=== PATIENT | male | born 1950 | race Caucasian/White ===

== ENCOUNTER 2018-01-14 19:06 | Emergency (ER) | payer MEDICARE, OTHER ==
[2018-01-14] MEDS ORDERED: Labetalol 100 MG/20 ML MDV IVPUSH ONE ×2 (19:39→21:20)
[2018-01-14] MEDS ORDERED: Sodium Chloride 0.9% 10 ML Syringe FLUSH PRN (19:39)
[2018-01-14] MEDS ORDERED: amLODIPine 5 MG Tab PO ONE (20:42)
--- NOTE | 2018-01-14 20:44 | EDM.PDOC ---
ED HPI GENERAL MEDICAL PROBLEM - General Chief Complaint: Eye Problems Stated Complaint: VISION ISSUES Time Seen by Provider: 01/14/18 19:21 Source of Information: Reports: Patient, RN Notes Reviewed - History of Present Illness INITIAL COMMENTS - FREE TEXT/NARRATIVE: 67-year-old male comes in after episode of some visual symptoms of his right eye about 45 minutes prior to arrival. He did not side doing some light duty chores when he started noticing "some dark spots of his right eye. This lasted for about 2 or 3 minutes. He felt like his vision was a bit "fuzzy or unclear". This seemed to be involved with just the right eye. He had no eye discomfort at the time, no headache nausea or vomiting. Those symptoms then did resolve after about 2 or 3 minutes. However on arrival to ED blood pressure was very high initial reading 205/93. He continues to have no headache. He has not been ill recently. He is on medication for hypertension and also on a statin. He has had no numbness or weakness of upper or lower extremities. No balance difficulty. No speech difficulty. - Related Data Allergies Allergy/AdvReac Type Severity Reaction Status Date / Time No Known Allergies Allergy Verified 01/14/18 19:15 Home Meds: Home Meds Simvastatin [Zocor] 20 mg PO DAILY 06/28/16 [History] amLODIPine Besylate [Amlodipine Besylate] 10 mg PO DAILY 06/28/16 [History] Past Medical History HEENT History: Reports: None Cardiovascular History: Reports: High Cholesterol, Hypertension Respiratory History: Reports: None Gastrointestinal History: Reports: None Genitourinary History: Reports: None Neurological History: Reports: None Psychiatric History: Reports: None Endocrine/Metabolic History: Reports: None Oncologic (Cancer) History: Reports: None Dermatologic History: Reports: None - Infectious Disease History Infectious Disease History: Reports: None - Past Surgical History HEENT Surgical History: Reports: Tonsillectomy GI Surgical History: Reports: Hernia, Abdominal Musculoskeletal Surgical History: Reports: ORIF, Other (See Below) Social & Family History - Family History Family Medical History: Noncontributory - Tobacco Use Smoking Status *Q: Never Smoker - Recreational Drug Use Recreational Drug Use: No - Living Situation & Occupation Living situation: Reports: , with Spouse Occupation: Employed ED ROS GENERAL - Review of Systems Review Of Systems: See Below Constitutional: Denies: Fever, Chills, Diaphoresis HEENT: Denies: Sinus Problem Respiratory: Denies: Shortness of Breath Cardiovascular: Denies: Chest Pain GI/Abdominal: Denies: Abdominal Pain, Nausea, Vomiting Musculoskeletal: Denies: Neck Pain, Shoulder Pain, Arm Pain Skin: Reports: No Symptoms Neurological: Reports: Dizziness (Mild, gone). Denies: Headache, Trouble Speaking, Difficulty Walking, Weakness ED EXAM GENERAL W FULL EYE - Physical Exam Exam: See Below General Appearance: Alert, No Apparent Distress Eye Exam: Bilateral Eye: PERRL Visual Acuity (R) 20/: 20 Eyelids: Bilateral: Normal Appearance Conjunctiva & Sclera: Bilateral: Normal Appearance Cornea Exam: Bilateral: Normal Appearance Extraocular Movements: Bilateral: Intact Pupillary Reaction: Bilateral: Brisk Anterior Chamber: Bilateral: Normal Appearance Nose: Normal Inspection Throat/Mouth: Normal Inspection, Normal Oropharynx Head: Atraumatic. No: Facial Swelling Neck: Supple, Full Range of Motion Respiratory/Chest: No Respiratory Distress, Lungs Clear, Normal Breath Sounds Cardiovascular: Regular Rate, Rhythm GI/Abdominal: Soft, Non-Tender Back Exam: No: CVA Tenderness (L), CVA Tenderness (R) Extremities: Normal Inspection, Normal Range of Motion Neurological: Alert, Oriented, No Motor/Sensory Deficits, Other (Finger to nose testing normal) Skin Exam: Warm, Dry, Normal Color Course - Vital Signs Last Recorded V/S: Last Vital Signs Temp 97.8 F 01/14/18 19:16 Pulse 63 01/14/18 21:23 Resp BP 177/94 H 01/14/18 21:23 Pulse Ox 99 01/14/18 19:16 - Orders/Labs/Meds Orders: Active Orders 24 hr Category Date Time Status Peripheral IV Care [RC] . DIRECTED Care 01/14/18 19:39 Active Peripheral IV Insertion Adult [OM.PC] Stat Oth 01/14/18 19:38 Ordered Labs: Laboratory Tests 01/14/18 01/14/18 Range/Units 19:49 19:49 WBC 8.08 (4.23-9.07) K/mm3 RBC 4.91 (4.63-6.08) M/mm3 Hgb 14.7 (13.7-17.5) gm/L Hct 42.7 (40.1-51.0) % MCV 87.0 (79.0-92.2) fl MCH 29.9 (25.7-32.2) pg MCHC 34.4 (32.2-35.5) g/dl RDW Std Deviation 40.6 (35.1-43.9) fL Plt Count 229 (163-337) K/mm3 MPV 10.8 (9.4-12.3) fl Neut % (Auto) 64.0 (34.0-67.9) % Lymph % (Auto) 22.0 (21.8-53.1) % [place] % (Auto) 9.8 (5.3-12.2) % Eos % (Auto) 3.6 (0.8-7.0) Baso % (Auto) 0.2 (0.1-1.2) % Neut # (Auto) 5.17 (1.78-5.38) K/mm3 Lymph # (Auto) 1.78 (1.32-3.57) K/mm3 [place] # (Auto) 0.79 (0.30-0.82) K/mm3 Eos # (Auto) 0.29 (0.04-0.54) K/mm3 Baso # (Auto) 0.02 (0.01-0.08) K/mm3 Sodium 135 L (136-145) mEq/L Potassium 3.7 (3.5-5.1) mEq/L Chloride 101 (98-107) mEq/L Carbon Dioxide 29 (21-32) mEq/L Anion Gap 8.7 (5-15) BUN 16 (7-18) mg/dL Creatinine 1.0 (0.7-1.3) mg/dL Est Cr Clr Drug Dosing 74.01 mL/min Estimated GFR (MDRD) > 60 (>60) mL/min BUN/Creatinine Ratio 16.0 (14-18) Glucose 113 (80-115) mg/dL Calcium 8.6 (8.5-10.1) mg/dL Total Bilirubin 0.3 (0.2-1.0) mg/dL AST 23 (15-37) U/L ALT 31 (16-63) U/L Alkaline Phosphatase 80 (46-116) U/L Total Protein 7.0 (6.4-8.2) g/dl Albumin 3.7 (3.4-5.0) g/dl Globulin 3.3 gm/dL Albumin/Globulin Ratio 1.1 (1-2) Meds: Medications Discontinued Medications Generic Name Dose Route Start Last Admin Trade Name Chan PRN Reason Stop Dose Admin Amlodipine Besylate 10 mg 01/14/18 20:42 01/14/18 20:48 Norvasc PO 01/14/18 20:43 10 mg ONETIME ONE Administration Labetalol HCl 20 mg 01/14/18 19:39 01/14/18 19:53 Normodyne IVPUSH 01/14/18 19:40 20 mg ONETIME ONE Administration Protocol Labetalol HCl 20 mg 01/14/18 21:20 01/14/18 21:23 Normodyne IVPUSH 01/14/18 21:21 20 mg ONETIME ONE Administration Protocol Sodium Chloride 10 ml 01/14/18 19:39 01/14/18 19:54 Saline Flush FLUSH 10 ml ASDIRECTED PRN Administration Keep Vein Open - Re-Assessments/Exams Free Text/Narrative Re-Assessment/Exam: 01/14/18 22:41 Blood pressure did improve after labetalol 20 mg IV. However with readings still running in the 175/94 range he was given a second dose as well along with his regular 10 mg amlodipine oral. With that blood pressure did continue to improve. He continues to have no further visual difficulty or symptomatology. Visual acuity 2020 as documented. He has not seen a provider for what sounds like quite a long time I have asked that he get quite a few readings in his home environment and then follow-up with one of our medical providers early next week, discharge instructions as documented. Departure - Departure Time of Disposition: 21:37 Disposition: Home, Self-Care 01 Condition: Fair Clinical Impression: Hypertension Qualifiers: Hypertension type: essential hypertension Qualified Code(s): I10 - Essential ( primary) hypertension - Discharge Information Instructions: Hypertension, [id number] Referrals: PCP,None [Primary Care Provider] - Forms: ED Department Discharge Additional Instructions: continue to avoid salty food, you may safely change your amlodipine to every morning, continue that once daily. Check blood pressures 2 or 3 times daily and keep a log of that and your heart rate. Follow-up with Dr. Gabriel Sutton , at our [facility] medical clinic early next week. Call tommorrow AM for appt., return to ED as needed if symptoms worsening in any way. - My Orders Last 24 Hours: My Active Orders 01/14/18 19:38 Peripheral IV Insertion Adult [OM.PC] Stat 01/14/18 19:39 Peripheral IV Care [RC] . DIRECTED - Assessment/Plan Last 24 Hours: My Active Orders 01/14/18 19:38 Peripheral IV Insertion Adult [OM.PC] Stat 01/14/18 19:39 Peripheral IV Care [RC] . DIRECTED
[2018-01-14 21:24] VITALS: BP 177/94
== END 2018-01-14 22:00 | disposition home or self-care (01) ==
LOC: JD.ED 19:06
DX: I10 Essential (primary) hypertension (principal); E78.00 Pure hypercholesterolemia, unspecified; Z79.899 Other long term (current) drug therapy
CPT/HCPCS: 36415; 80053; 85025; 96374; 96376; 99284; A9270; J7050

== ENCOUNTER 2018-06-16 09:52 | Day surgery (SDC) | payer MEDICARE, OTHER ==
[~2018-06-16 09:52] MED LIST: Lactated Ringers 1,000 ML IV SCH; Lidocaine 1%/Sod Bicarbonate in NS 8.4% 1 ML Syringe IDERM PRN; Sodium Chloride 0.9% 10 ML Syringe FLUSH PRN
--- NOTE | 2018-06-16 11:21 | PCM.PREANE ---
Preanesthetic Assessment - Anesthesia/Transfusion/Family Hx Anesthesia History: Prior Anesthesia Without Reaction Type of Anesthesia Reaction: Excessive Nausea/Vomiting (with one surgery) Family History of Anesthesia Reaction: No Transfusion History: No Prior Transfusion(s) - Review of Systems General: No Symptoms Pulmonary: No Symptoms Cardiovascular: Other (HTN, HIGH lipids) Gastrointestinal: No Symptoms Neurological: No Symptoms Other: Reports: None - Physical Assessment NPO Status Date: 06/16/18 NPO Status Time: 03:00 Pulse: 66 O2 Sat by Pulse Oximetry: 95 Respiratory Rate: 16 Blood Pressure: 181/82 Temperature: 37.2 C Vital Signs: Last Vital Signs Temp 37.2 C 06/16/18 10:00 Pulse 66 06/16/18 10:00 Resp 16 06/16/18 10:00 BP 181/82 H 06/16/18 10:00 Pulse Ox 95 06/16/18 10:00 Height: 1.78 m Weight: 108.862 kg ASA Class: 2 Mental Status: Alert & Oriented x3 Airway Class: Mallampati = 2 Dentition: Reports: Normal Dentition Thyro-Mental Finger Breadths: 3 Mouth Opening Finger Breadths: 3 ROM/Head Extension: Full Lungs: Clear to Auscultation, Normal Respiratory Effort Cardiovascular: Regular Rate, Regular Rhythm - Allergies Allergies/Adverse Reactions: Allergies Allergy/AdvReac Type Severity Reaction Status Date / Time No Known Allergies Allergy Verified 01/14/18 19:15 - Blood Blood Available: No Product(s) Available: None - Anesthesia Plan Pre-Op Medication Ordered: None - Acknowledgements Anesthesia Type Planned: MAC Pt an Appropriate Candidate for the Planned Anesthesia: Yes Alternatives and Risks of Anesthesia Discussed w Pt/Guardian: Yes Pt/Guardian Understands and Agrees with Anesthesia Plan: Yes PreAnesthesia Questionnaire HEENT History: Reports: Other (See Below) Other HEENT History: pharyngitis Cardiovascular History: Reports: High Cholesterol, Hypertension Respiratory History: Reports: None Gastrointestinal History: Reports: None Genitourinary History: Reports: None [employer] History: Reports: None Neurological History: Reports: None Psychiatric History: Reports: None Endocrine/Metabolic History: Reports: None Hematologic History: Reports: None Immunologic History: Reports: None Oncologic (Cancer) History: Reports: None Dermatologic History: Reports: None - Infectious Disease History Infectious Disease History: Reports: None - Past Surgical History Head Surgeries/Procedures: Reports: None HEENT Surgical History: Reports: Tonsillectomy Cardiovascular Surgical History: Reports: None Respiratory Surgical History: Reports: None GI Surgical History: Reports: None, Hernia, Abdominal Female Surgical History: Reports: None Male Surgical History: Reports: None Endocrine Surgical History: Reports: None Neurological Surgical History: Reports: None Musculoskeletal Surgical History: Reports: ORIF, Other (See Below) Other Musculoskeletal Surgeries/Procedures:: arm surgery and toe surgery Oncologic Surgical History: Reports: None Dermatological Surgical History: Reports: None - SUBSTANCE USE Smoking Status *Q: Never Smoker Recreational Drug Use History: No - HOME MEDS Home Medications: Home Meds Simvastatin [Zocor] 20 mg PO DAILY 06/28/16 [History] amLODIPine Besylate [Amlodipine Besylate] 10 mg PO DAILY 06/28/16 [History] Lisinopril 40 mg PO DAILY 06/15/18 [History] - CURRENT (IN HOUSE) MEDS Current Meds: Current Medications Lactated Ringer's (Ringers, Lactated) 1,000 mls @ 125 mls/hr IV ASDIRECTED LATRICIA Stop: 06/16/18 23:00 Lidocaine/Sodium Bicarbonate (Buffered Lidocaine 1% In Ns 8.4%) 0.25 ml IDERM ONETIME PRN PRN Reason: Prior to IV Start Stop: 06/16/18 18:00 Sodium Chloride (Saline Flush) 10 ml FLUSH ASDIRECTED PRN PRN Reason: Keep Vein Open Stop: 06/16/18 18:00
[2018-06-16] MEDS ORDERED: Propofol 200 MG/20 ML SDV ONE ×2 (12:25→12:26)
[2018-06-16] MEDS ORDERED: Simethicone Drops 40 MG/0.6 ML 30 ML Bottle ONE (12:38)
[2018-06-16] MEDS ORDERED: Lactated Ringers 1,000 ML ONE (12:47)
[2018-06-16] MEDS ORDERED: Ondansetron 4 MG/2 ML SDV ONE (13:05)
--- NOTE | 2018-06-16 13:12 | PCM48HPAN ---
Post Anesthesia Note - EVALUATION WITHIN 48HRS OF ANESTHETIC Vital Signs in Normal Range: Yes Patient Participated in Evaluation: Yes Respiratory Function Stable: Yes Airway Patent: Yes Cardiovascular Function Stable: Yes Hydration Status Stable: Yes Pain Control Satisfactory: Yes Nausea and Vomiting Control Satisfactory: Yes Mental Status Recovered: Yes Pulse Rate: 66 SaO2: 94 Resp Rate: 16 Temperature: 37.2 C Blood Pressure: 141/76
--- NOTE | 2018-06-16 13:57 | PCM.OPNOTE ---
- General Post-Op/Procedure Note Date of Surgery/Procedure: 06/16/18 Operative Procedure(s): colonoscopy with snare polypectomy Findings: 1) ascending colon polyp 2) descending colon polyp (unable to biopsy) 3) sigmoid colon polyp 4) rectal polyp 5) mild sigmoid diverticulosis Pre Op Diagnosis: screening colonoscopy, average risk Post-Op Diagnosis: s/p colonoscopy with snare polypectomy Primary Surgeon: Kaushik Jain Anesthesia Provider: Kelly Shahid Pathology: 1) ascending colon polyp 2) sigmoid colon polyp 3) rectal polyp EBL in mLs: 1 Complications: None Condition: Good Free Text/Narrative:: Indications for surgery: The patient is 68 yo male, who never had a screening colonoscopy, overdue for his initial screening colonoscopy, average risk. The patient was consented for colonoscopy with possible biopsy. Indications, risks, and benefits were discussed with the patient in detail. Description of procedure: After surgical consent was verified, the patient was brought to the main OR. A surgical time-out was performed to verify proper patient and proper procedure. Anesthesia performed monitored anesthesia care. A digital rectal exam was performed, which was normal. The colonoscope was inserted into the anus and advanced through the colon to the cecum. The terminal ileum was intubated, and it appeared normal. Location of the cecum was confirmed by presence of the appendiceal orifice and by presence of the ileocecal valve. The scope was then withdrawn, with inspection of the colonic mucosa. Retroflexion was performed in the rectum. There was mild sigmoid diverticulosis. There was a semipedunculated 5 mm polyp in the distal ascending colon, removed by cold forceps polypectomy. There was a 5 mm sessile polyp in the descending colon, but due to its location and angle of biopsy forceps, biopsy could not be performed. There was a 8 mm pedunculated polyp in the sigmoid colon, removed by hot snare polypectomy. There was a 3 mm sessile polyp in the rectum, removed by cold forceps polypectomy. The remainder of the colon and rectum was normal. Withdrawal time was 20 minutes , including time spent performing polypectomy. Blood loss was minimal. Prep was good. The patient tolerated the procedure well, was brought out of anesthesia, and transported to the PACU in stable condition. Kaushik Jain M.D., F.A.C.S. General Surgery Pager: [phone]
[2018-06-16 14:26] VITALS: BP 144/76
== END 2018-06-16 14:13 | disposition home or self-care (01) ==
LOC: JD.SDS 09:52
PROVIDERS: ATTEND Student in an Organized Health Care Education/Training Program
DX: R19.5 Other fecal abnormalities (principal); D12.2 Benign neoplasm of ascending colon; K63.5 Polyp of colon; K62.1 Rectal polyp; K57.30 Diverticulosis of large intestine without perforation or abscess without bleeding; I10 Essential (primary) hypertension; E66.9 Obesity, unspecified; Z68.36 Body mass index [BMI] 36.0-36.9, adult; E78.5 Hyperlipidemia, unspecified; Z79.899 Other long term (current) drug therapy
CPT/HCPCS: 45380; 45385; A9270; J2405; J2704; J7120; 00811

== ENCOUNTER 2021-03-20 18:24 | Emergency (ER) | payer MEDICARE, OTHER ==
[2021-03-20 18:43] VITALS: BP 182/103; PULSE 79
--- NOTE | 2021-03-20 19:37 | EDM.PDOC ---
ED HPI GENERAL MEDICAL PROBLEM - General Chief Complaint: Cardiovascular Problem Stated Complaint: blood pressure Time Seen by Provider: 03/20/21 19:18 Source of Information: Reports: Patient, RN Notes Reviewed History Limitations: Reports: No Limitations - History of Present Illness INITIAL COMMENTS - FREE TEXT/NARRATIVE: Patient is a 71-year-old male who presents to the ER for the evaluation of his elevated blood pressure readings at home. Patient has a history of hypertension, and does take an olmesartan/amlodipine/hydrochlorothiazide pill for management, notes that this seems to work well for him however he took his blood pressure today, and it was noted to be in the 180s systolically. States that he is having some floaters in his vision, but no blurred vision double vision, no headache, no chest pain. He has been taking his medications as directed today. He states that he has had no recent med changes. Primary care provider is Dr. Sutton. The patient's son is an ER physician in [place], and told him that he should come to the ER to get checked because that blood pressure was a little bit too high for his liking. He has had no fevers or chills, cough or shortness of breath, or any sort of nausea/vomiting/diarrhea. The patient also states that the last time he saw Dr. Sutton she noticed when she was feeling his pulse that his heart seemed to skip a beat. There are PVCs noted on the tele monitor in the room. - Related Data Allergies Allergy/AdvReac Type Severity Reaction Status Date / Time No Known Allergies Allergy Verified 03/20/21 18:43 Home Meds: Home Meds Doxazosin Mesylate [Cardura] 1 mg PO DAILY 03/20/21 [History] Levothyroxine Sodium [Levothyroxine] 50 mcg PO DAILY 03/20/21 [History] Olmesartan/Amlodipin/Hcthiazid [[id number] 40-10-25Mg] 1 each PO DAILY 03/20/21 [History] Past Medical History HEENT History: Reports: Other (See Below) Other HEENT History: pharyngitis Cardiovascular History: Reports: High Cholesterol, Hypertension Respiratory History: Reports: None Gastrointestinal History: Reports: None Genitourinary History: Reports: None 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 Neurological History: Reports: None Psychiatric History: Reports: None Endocrine/Metabolic History: Reports: Obesity/BMI 30+ Hematologic History: Reports: None Immunologic History: Reports: None Oncologic (Cancer) History: Reports: None Dermatologic History: Reports: None - Infectious Disease History Infectious Disease History: Reports: None - Past Surgical History HEENT Surgical History: Reports: Tonsillectomy GI Surgical History: Reports: Hernia, Abdominal Musculoskeletal Surgical History: Reports: ORIF, Other (See Below) Other Musculoskeletal Surgeries/Procedures:: arm surgery and toe surgery Social & Family History - Family History Family Medical History: No Pertinent Family History - Tobacco Use Tobacco Use Status *Q: Never Tobacco User - Caffeine Use Caffeine Use: Reports: Soda - Recreational Drug Use Recreational Drug Use: No - Living Situation & Occupation Living situation: Reports: , with Spouse Occupation: Employed ED ROS GENERAL - Review of Systems Review Of Systems: Comprehensive ROS is negative, except as noted in HPI. ED EXAM, GENERAL - Physical Exam Exam: See Below Exam Limited By: No Limitations General Appearance: Alert, WD/WN, No Apparent Distress Respiratory/Chest: No Respiratory Distress, Lungs Clear, Normal Breath Sounds, No Accessory Muscle Use, Chest Non-Tender Cardiovascular: Normal Peripheral Pulses, Regular Rate, Rhythm, No Edema Peripheral Pulses: 2+: Radial (L), Radial (R) GI/Abdominal: Normal Bowel Sounds, Soft, Non-Tender, No Distention, No Mass Extremities: Normal Inspection, Normal Capillary Refill Neurological: Alert, Oriented, Normal Cognition, No Motor/Sensory Deficits Psychiatric: Normal Affect, Normal Mood Skin Exam: Warm, Dry, Intact, Normal Color, No Rash #1 Interpretation EKG Date: 03/20/21 Time: 19:43 Rhythm: NSR Rate (Beats/Min): 67 [place]: LAD-Left [place] Deviation (-52 ) P-Wave: Present QRS: Normal ST-T: Normal QT: Normal Comparison: NA - No Prior EKG EKG Interpretation Comments: No obvious ischemia or acute ST changes noted, reviewed by myself and Dr. Kay. He also has a first-degree AV block, Q waves in lead III and a near Q- wave in aVF consider old inferior wall WI there is T wave flattening in leads III, aVL, V5 V6. Dr. Kay also appreciated a left anterior fascicular block. Course - Vital Signs Last Recorded V/S: Last Vital Signs Temp 97.2 F 03/20/21 18:37 Pulse 79 03/20/21 18:37 Resp 16 03/20/21 18:37 BP 182/103 H 03/20/21 18:37 Pulse Ox 97 03/20/21 18:37 - Orders/Labs/Meds Orders: Active Orders 24 hr Category Date Time Status EKG Documentation Completion [RC] STAT Care 03/20/21 19:30 Ordered Labs: Laboratory Tests 03/20/21 03/20/21 Range/Units 19:42 19:42 WBC 7.44 (4.23-9.07) K/mm3 RBC 4.76 (4.63-6.08) M/mm3 Hgb 14.3 (13.7-17.5) gm/dl Hct 42.4 (40.1-51.0) % MCV 89.1 (79.0-92.2) fl MCH 30.0 (25.7-32.2) pg MCHC 33.7 (32.2-35.5) g/dl RDW Std Deviation 40.9 (35.1-43.9) fL Plt Count 225 (163-337) K/mm3 MPV 10.4 (9.4-12.3) fl Neut % (Auto) 66.1 (34.0-67.9) % Lymph % (Auto) 20.3 L (21.8-53.1) % [place] % (Auto) 9.5 (5.3-12.2) % Eos % (Auto) 3.4 (0.8-7.0) Baso % (Auto) 0.4 (0.1-1.2) % Neut # (Auto) 4.92 (1.78-5.38) K/mm3 Lymph # (Auto) 1.51 (1.32-3.57) K/mm3 [place] # (Auto) 0.71 (0.30-0.82) K/mm3 Eos # (Auto) 0.25 (0.04-0.54) K/mm3 Baso # (Auto) 0.03 (0.01-0.08) K/mm3 Sodium 141 (136-145) mEq/L Potassium 3.6 (3.5-5.1) mEq/L Chloride 104 (98-107) mEq/L Carbon Dioxide 26 (21-32) mEq/L Anion Gap 14.6 (5-15) BUN 23 H (7-18) mg/dL Creatinine 1.1 (0.7-1.3) mg/dL Est Cr Clr Drug Dosing 63.60 mL/min Estimated GFR (MDRD) > 60 (>60) mL/min BUN/Creatinine Ratio 20.9 H (14-18) Glucose 128 H (70-99) mg/dL Calcium 8.1 L (8.5-10.1) mg/dL Magnesium 2.3 (1.8-2.4) mg/dL Total Bilirubin 0.3 (0.2-1.0) mg/dL AST 14 L (15-37) U/L ALT 22 (16-63) U/L Alkaline Phosphatase 77 (46-116) U/L Troponin I < 0.017 (0.00-0.056) ng/mL Total Protein 7.0 (6.4-8.2) g/dl Albumin 3.5 (3.4-5.0) g/dl Globulin 3.5 gm/dL Albumin/Globulin Ratio 1.0 (1-2) - Re-Assessments/Exams Free Text/Narrative Re-Assessment/Exam: 03/20/21 19:37 Patient presents to the ER for his elevated blood pressure readings. Due to prolonged wait times in the ER, his blood pressure has now settled into the 140 systolically. The patient will have an EKG obtained for the evaluation of the PVCs noted on the monitor, will get some baseline labs as well for evaluation. Highly likely there will be no medication changes for this gentleman at this visit at this time. 03/20/21 20:31 Labs are unremarkable, troponin is undetectably low, EKG demonstrates no acute worrisome findings for today's purposes. We will discharge the patient home with general recommendations and have him follow with Dr. Sutton for post ER follow-up, patient verbalized understanding. Departure - Departure Time of Disposition: 20:32 Disposition: Home, Self-Care 01 Condition: Good Clinical Impression: Elevated blood pressure reading in office with diagnosis of hypertension Instructions: Managing Your Hypertension Referrals: Vickie Sutton MD [Primary Care Provider] - Forms: ED Department Discharge Additional Instructions: You were evaluated in the ER today for your elevated blood pressure readings. Your work-up in the ER today included EKG, and laboratory evaluation, all of which were not remarkable for any acute findings. While being observed in the ER, your blood pressure did get better, and has lowered to 130s systolically. Please follow-up with your regular care provider, sometime in the next week or so for ER follow-up, to make sure that things are getting better as expected. Please continue to take all your medications as previously prescribed. Please return to the ER at any time if symptoms change or worsen. Sepsis Event Note (ED) - Evaluation Sepsis Screening Result: No Definite Risk - Focused Exam Vital Signs: Vital Signs Temp Pulse Resp BP Pulse Ox 03/20/21 18:37 97.2 F 79 16 182/103 H 97 - My Orders Last 24 Hours: My Active Orders 03/20/21 19:30 EKG Documentation Completion [RC] STAT - Assessment/Plan Last 24 Hours: My Active Orders 03/20/21 19:30 EKG Documentation Completion [RC] STAT
== END 2021-03-20 20:44 | disposition home or self-care (01) ==
LOC: JD.ED 18:24
DX: I10 Essential (primary) hypertension (principal); E66.9 Obesity, unspecified; Z68.30 Body mass index [BMI] 30.0-30.9, adult
CPT/HCPCS: 36415; 80053; 83735; 84484; 85025; 93005; 93010; 99283; 99283-25

== ENCOUNTER 2023-03-26 07:57 | Day surgery (SDC) | payer MEDICARE, OTHER ==
[~2023-03-26 07:57] MED LIST changes: +Sodium Chloride 0.9% 10 ML Syringe FLUSH SCH
[2023-03-26] MEDS ORDERED: Propofol 200 MG/20 ML SDV ONE ×2 (09:00→10:16)
[2023-03-26] MEDS ORDERED: fentaNYL 100 MCG/2 ML SDV ONE (09:01)
[2023-03-26] MEDS ORDERED: Lactated Ringers 1,000 ML IV ONE (10:30)
[2023-03-26 11:07] VITALS: PULSE 63
[2023-03-26 11:08] VITALS: BP 142/88
== END 2023-03-26 11:05 | disposition home or self-care (01) ==
LOC: JD.SDS 07:57
PROVIDERS: ATTEND Surgery
DX: Z12.11 Encounter for screening for malignant neoplasm of colon (principal); D12.0 Benign neoplasm of cecum; D12.4 Benign neoplasm of descending colon; K57.30 Diverticulosis of large intestine without perforation or abscess without bleeding; E78.00 Pure hypercholesterolemia, unspecified; I10 Essential (primary) hypertension; E03.9 Hypothyroidism, unspecified; E66.9 Obesity, unspecified; Z86.010 Personal history of colon polyps; Z79.890 Hormone replacement therapy; Z79.899 Other long term (current) drug therapy; Z88.8 Allergy status to other drugs, medicaments and biological substances; Z68.35 Body mass index [BMI] 35.0-35.9, adult
CPT/HCPCS: 45385; J2704; J3010; J7120

== ENCOUNTER 2024-03-25 21:31 | Emergency (ER) | payer MEDICARE, OTHER ==
[2024-03-25 22:17] LABS: BASOPHILS PERCENT AUTO 0.4 % (0.0-1.0); EOSINOPHILS ABSOLUTE AUTO 0.3 K/mm3 (0.0-0.4); EOSINOPHILS PERCENT AUTO 3.2 % (0.0-6.0); HEMATOCRIT 40.3 % (42.0-52.0); HEMOGLOBIN 13.2 gm/dl (14.0-18.0); IMMATURE GRAN ABSOLUTE AUTO 0.09 K/mm3 (0.00-0.05); IMMATURE GRAN PERCENT AUTO 0.8 % (0.0-0.4); LYMPHOCYTES ABSOLUTE AUTO 1.5 K/mm3 (1.0-4.8); LYMPHOCYTES PERCENT AUTO 14.4 % (24.0-44.0); MEAN CORPUSCULAR HEMOGLOBIN 29.8 pg (28.0-32.0); MEAN CORPUSCULAR HGB CONC 32.8 g/dl (32.0-36.0); MEAN PLATELET VOLUME 10.1 fl (9.4-12.4); MONOCYTES ABSOLUTE AUTO 1.3 K/mm3 (0.0-0.8); MONOCYTES PERCENT AUTO 12.4 % (0.0-8.0); NEUTROPHILS ABSOLUTE AUTO 7.3 K/mm3 (1.8-7.7); NEUTROPHILS PERCENT AUTO 68.8 % (41.0-71.0); PLATELET COUNT,PLT 250 K/mm3 (150-400); RED BLOOD CELL COUNT 4.43 M/mm3 (4.52-5.90); WHITE BLOOD CELL COUNT,WBC 10.66 K/mm3 (3.9-11.3)
[2024-03-25 22:41] LABS: A/G RATIO 0.8 (1-2); ALBUMIN 3.2 g/dl (3.4-5.0); ANION GAP 6.5 (5-15); BILIRUBIN TOTAL 0.5 mg/dL (0.2-1.0); BUN/CREATININE RATIO 23.1 (14-18); C-REACTIVE PROTEIN 9.47 mg/dL (<0.30); CALCIUM 8.7 mg/dL (8.5-10.1); CREATININE 1.3 mg/dL (0.7-1.3); EST CRCL DRUG DOSING (CG) 51.47 mL/min; MAGNESIUM 2.2 mg/dL (1.8-2.4); POTASSIUM,K 4.5 mEq/L (3.5-5.1); URIC ACID 7.6 mg/dL (3.5-7.2)
[2024-03-25 22:58] LABS: APPEARANCE,URINE CLEAR (Clear); BILIRUBIN,URINE NEGATIVE (Negative); COLOR,URINE YELLOW (Yellow); GLUCOSE,URINE NEGATIVE (Negative); KETONES,URINE TRACE (Negative); LEUKOCYTE ESTERASE,URINE TRACE (Negative); NITRITE,URINE NEGATIVE (Negative); OCCULT BLOOD,URINE NEGATIVE (Negative); PROTEIN,URINE 1+ (Negative)
[2024-03-25 23:11] LABS: BACTERIA,URINE FEW /hpf (FEW); MUCUS,URINE MODERATE /hpf (FEW); RBC,URINE 0-5 /hpf (0-5); SQUAMOUS EPITHELIAL CELLS,UR 0-5 /hpf (0-5)
[2024-03-25] MEDS: Colchicine 0.6 MG Tab PO ONE (23:33)
[2024-03-25] MEDS: Cefdinir 300 MG Cap PO ONE (23:33)
[2024-03-25 23:34] VITALS: BP 162/73; PULSE 72
== END 2024-03-25 23:43 | disposition home or self-care (01) ==
LOC: JD.ED 21:31
DX: M10.9 Gout, unspecified (principal); N30.00 Acute cystitis without hematuria; I10 Essential (primary) hypertension; E78.00 Pure hypercholesterolemia, unspecified; E03.9 Hypothyroidism, unspecified; Z88.8 Allergy status to other drugs, medicaments and biological substances; Z79.890 Hormone replacement therapy; Z79.899 Other long term (current) drug therapy
CPT/HCPCS: 36415; 80053; 81001; 83735; 84550; 85025; 86140; 87086; 99283; A9270

== ENCOUNTER 2025-06-18 19:22 | Emergency (ER) | payer MEDICARE, OTHER ==
[2025-06-18 21:04] VITALS: BP 136/71; PULSE 82
== END 2025-06-18 21:22 | disposition home or self-care (01) ==
LOC: JD.ED 19:22
DX: M25.571 Pain in right ankle and joints of right foot (principal); E78.00 Pure hypercholesterolemia, unspecified; I10 Essential (primary) hypertension; E03.9 Hypothyroidism, unspecified; Z88.8 Allergy status to other drugs, medicaments and biological substances; Z79.890 Hormone replacement therapy; Z79.899 Other long term (current) drug therapy
CPT/HCPCS: 73610-26-RT; 73610-RT; 99283